=== PATIENT | male | born 1955 | race Caucasian/White ===

== ENCOUNTER 2017-01-11 10:39 | Emergency (ER) | payer BC ==
[2017-01-11 11:28] VITALS: BP 170/104
[2017-01-11] MEDS ORDERED: NORCO 10/325 PO ONE (16:11)
[2017-01-11] MEDS ORDERED: ZOFRAN ODT PO ONE (16:11)
--- NOTE | 2017-01-11 16:11 | Emergency Department Report ---
ED Back Pain/Injury HPI - General Chief Complaint: Back Pain/Injury Stated Complaint: RT LEG/LOWER BACK PAIN Time Seen by Provider: 01/11/17 16:02 Source: patient Limitations: No Limitations - History of Present Illness Initial Comments: 61-year-old male past medical history hypertension presents with complaint of right-sided buttock pain radiating down right leg intermittent tingling for 3 weeks. Patient denies any direct trauma no recent falls. Patient is ambulatory but states that he has pain radiating down his right leg is using naproxen and Flexeril with minimal relief of his pain. Patient denies saddle paresthesias loss of bladder or bowel continence. Patient states pain is worse when he bends over or if he tries to raise his right leg. Pain is intermittent. Currently 8 out of 10. MD Complaint: back pain Onset/Timin -: week(s) Similar Symptoms Previously: Yes Place: home, work Radiation: buttocks, right leg Severity: moderate Severity scale (0 -10): 7 Quality: sharp, aching Consistency: intermittent Improves With: none Worsens With: none Associated Symptoms: denies other symptoms - Related Data Previous Rx's Medication Instructions Recorded Last Taken Type Acetaminophen/Codeine [Tylenol 1 tab PO Q6H PRN #16 tab 01/11/17 Unknown Rx /Codeine # 3 tab] Allergies Allergy/AdvReac Type Severity Reaction Status Date / Time No Known Allergies Allergy Unverified 01/11/17 11:28 ED Review of Systems ROS: Stated complaint: RT LEG/LOWER BACK PAIN Other details as noted in HPI Constitutional: denies: chills, fever Eyes: denies: eye pain, eye discharge, vision change ENT: denies: ear pain, throat pain Respiratory: denies: cough, shortness of breath, wheezing Cardiovascular: denies: chest pain, palpitations Endocrine: no symptoms reported Gastrointestinal: denies: abdominal pain, nausea, diarrhea Genitourinary: denies: urgency, dysuria Musculoskeletal: as per HPI. denies: back pain, joint swelling, arthralgia Skin: denies: rash, lesions Neurological: denies: headache, weakness, paresthesias Psychiatric: denies: anxiety, depression Hematological/Lymphatic: denies: easy bleeding, easy bruising ED Past Medical Hx - Past Medical History Hx Hypertension: Yes - Surgical History Past Surgical History?: No - Social History Smoking Status: Current Every Day Smoker Substance Use Type: Alcohol - Medications Home Medications: Home Medications Medication Instructions Recorded Confirmed Last Taken Type Acetaminophen/Codeine [Tylenol 1 tab PO Q6H PRN #16 tab 01/11/17 Unknown Rx /Codeine # 3 tab] ED Physical Exam - General Limitations: No Limitations General appearance: alert, in no apparent distress - Head Head exam: Present: atraumatic, normocephalic - Eye Eye exam: Present: normal appearance, PERRL, EOMI - ENT ENT exam: Present: mucous membranes moist - Neck Neck exam: Present: normal inspection, full ROM - Respiratory Respiratory exam: Present: normal lung sounds bilaterally. Absent: respiratory distress - Cardiovascular Cardiovascular Exam: Present: regular rate, normal rhythm. Absent: systolic murmur, diastolic murmur, rubs, gallop - GI/Abdominal GI/Abdominal exam: Present: soft, normal bowel sounds - Rectal Rectal exam: Present: deferred - Extremities Exam Extremities exam: Present: normal inspection - Back Exam Back exam: Present: normal inspection - Neurological Exam Neurological exam: Present: alert, oriented X3, CN II-XII intact, normal gait - Expanded Neurological Exam Expanded Patient oriented to: Present: person, place, time Cranial nerves: EOM's Intact: Normal Motor strength exam: RUE: 5, LUE: 5, RLE: 5, LLE: 5 DTR: knee (R): 3+, knee (L): 3+ Best Eye Response ([place]): (4) open spontaneously Best Motor Response ([place]): (6) obeys commands Best Verbal Response (Jr): (5) oriented Jr Total: 15 - Psychiatric Psychiatric exam: Present: normal affect, normal mood - Skin Skin exam: Present: warm, dry, intact, normal color. Absent: rash ED Course Vital Signs 01/11/17 11:25 Temperature 98.4 F Pulse Rate 81 Respiratory 18 Rate Blood Pressure 170/104 O2 Sat by Pulse 98 Oximetry ED Medical Decision Making - Medical Decision Making a/p: lower/lower back pain, lumbalgia, sciatica 1- will provide symptomatic relief with trial of NSAIDS, pt states she has not tried NSAIDS, only tylenol for pain 2- will refer to PMD, spine surgery, no neurovascular deficits on PE, no saddle paraesthesias, no bladder overflow, no bowel incontience. Pt denies any fever, chill, dysruia or IV drug use. Pain likely from chronic degenerative spinal disease. Critical care attestation.: If time is entered above; I have spent that time in minutes in the direct care of this critically ill patient, excluding procedure time. ED Disposition Clinical Impression: Sciatica of right side Disposition: DC-01 TO HOME OR SELFCARE Is pt being admited?: No Does the pt Need Aspirin: No Condition: Stable Instructions: Sciatica (ED), Lumbar Radiculopathy (ED), Acute Low Back Pain (ED ) Prescriptions: Acetaminophen/Codeine [Tylenol /Codeine # 3 tab] 1 tab PO Q6H PRN #16 tab PRN Reason: Pain Referrals: JOEL BREWSTER MD [Staff Physician] - 3-5 Days ERIN FLORES MD [Staff Physician] - 3-5 Days [facility] [Provider Group] - 3-5 Days Forms: Work/School Release Form(ED) Time of Disposition: 17:42
--- NOTE | 2017-01-11 17:23 | XRay Report ---
FINAL REPORT EXAM: XR SPINE LUMBOSACRAL 2-3V HISTORY: worsenign lower back pain TECHNIQUE: AP, lateral and coned-down views of the lumbar spine PRIORS: None. FINDINGS: The vertebral body heights are well maintained. Moderate disc space narrowing L5-S1 is seen. Spurring anteriorly and posteriorly at this level is present. There is a mild dextroscoliosis centered around L2-L3. No evidence for spondylolysis or spondylolisthesis is seen. Pedicles are intact bilaterally at all levels. The paraspinal soft tissues are unremarkable. IMPRESSION: Degenerative disc narrowing at L5-S1. Mild dextroscoliosis.
== END 2017-01-11 18:00 | disposition home or self-care (01) ==
LOC: ED 10:39
DX: M54.31 Sciatica, right side (principal); I10 Essential (primary) hypertension; F17.200 Nicotine dependence, unspecified, uncomplicated
CPT/HCPCS: 72100; Q0162